=== PATIENT | male | born 1980 | race Caucasian/White ===

== ENCOUNTER 2017-10-14 00:44 | Emergency (ER) | payer SELFPAY ==
[~2017-10-14] VITALS: Ht 185.4 cm; Wt 133.8 kg
[2017-10-14 00:46] VITALS: BP 118/79
--- NOTE | 2017-10-14 00:52 | NUR ---
37/M CAME IN W C/O SYNCOPE AND HEADACHE X 1 DAY. PT REPORTS HE HAD SEVERE HEADACHE AND NECK PAIN YESTERDAY AND WHEN HE GOT OUT OF THE CAR HE HAD SEVERE PAIN AND HAD SYNCOPAL EPISODE. PT REPORTS HE HIT HIS HEAD, NO HEMATOMA/OBVIOUS INJURIES NOTED AT THIS TIME. REPORTS NAUSEA. AOX4, GCS 15. S/O STATES PT HAS BEEN "SPACING OUT SINCE FEBRUARY, I WILL TALK TO HIM AND HE WOULD JUST BE SPACED OUT" PMH: SEVERAL CONCUSSIONS FROM FOOTBALL
--- NOTE | 2017-10-14 00:52 | NUR ---
TO BED # 12 AMBULATORY, REPORT GIVEN TO SHERRY PETERSEN.
[2017-10-14] MEDS ORDERED: NACL 0.9% 1,000 ML IV ONE (01:35)
[2017-10-14] MEDS ORDERED: MORPHINE SULFATE 4 MG/ML SYR IVP ONE (01:35)
[2017-10-14] MEDS ORDERED: diphenhydrAMINE 50 MG/ML VIAL IVP ONE (01:35)
[2017-10-14] MEDS ORDERED: PROCHLORPERAZINE 10 MG/2 ML VIAL IVP ONE (01:35)
[2017-10-14 01:55] LABS: BASOPHILS # (AUTO) 0.1 K/uL (0.00-0.22); BASOPHILS % (AUTO) 0.7 % (0.0-2.0); EOSINOPHILS # (AUTO) 0.2 K/uL (0-0.4); EOSINOPHILS % (AUTO) 2.3 % (0.0-4.0); HEMATOCRIT 46.1 % (36-52); HEMOGLOBIN 15.2 g/dL (12.0-18.0); LYMPHOCYTES # (AUTO) 3.1 K/uL (2.0-11.5); LYMPHOCYTES % (AUTO) 38.2 % (20.5-51.1); MEAN CORPUSCULAR HEMOGLOBIN 28 pg (27-31); MEAN CORPUSCULAR HGB CONC 33 g/dL (33-37); MEAN CORPUSCULAR VOLUME 84.6 fL (80-94); MONOCYTES # (AUTO) 0.6 K/uL (0.8-1.0); NEUTROPHILS # (AUTO) 4.2 K/uL (1.8-7.7); NEUTROPHILS % (AUTO) 51.8 % (42.2-75.2); PLATELET COUNT (AUTO) 128 K/uL (140-450); RED BLOOD CELL COUNT(AUTO) 5.44 MIL/uL (4.20-6.10); RED CELL DISTRIBUTION WIDTH 13.6 % (11.6-13.7); WHITE BLOOD COUNT (AUTO) 8.1 K/uL (4.8-10.8)
--- NOTE | 2017-10-14 02:00 | NUR ---
Patient appears to be resting comfortably in bed. Vital Signs within normal limits. Respirations even and unlabored.
[2017-10-14 04:10] LABS: APPEARANCE,URINE CLEAR (CLEAR); BILIRUBIN,URINE NEGATIVE (NEGATIVE); BLOOD, URINE NEGATIVE (NEGATIVE); COLOR,URINE YELLOW (YELLOW); LEUKOCYTE ESTERASE ,URINE NEGATIVE (NEGATIVE); NITRITE, URINE NEGATIVE (NEGATIVE); UGLUCOSE NEGATIVE (NEGATIVE)
[2017-10-14 04:29] LABS: BARBITURATE, URINE NEG. ng/ml (NEG <=200); BENZODIAZEPINE, URINE NEG. ng/mL (NEG <=200); CANNABINOID, URINE POS. ng/mL (NEG <=50); COCAINE, URINE NEG. ng/mL (NEG <=300); OPIATE, URINE POS. ng/mL (NEG <=2000); PHENCYCLIDINE SCREEN,URINE NEG. ng/mL (NEG <=25)
[2017-10-14 05:22] LABS: ANION GAP 16.7 (8-16); CARBON DIOXIDE 23.2 mmol/L (21-32); CREATININE 1.7 mg/dL (0.7-1.3); POTASSIUM 3.9 mmol/L (3.5-5.1)
[2017-10-14 05:50] VITALS: BP 128/72
--- NOTE | 2017-10-14 05:50 | NUR ---
Patient discharged with v/s stable. Written and verbal after care instructions given and explained. Patient verbalized understanding. Ambulatory with steady gait. All questions addressed prior to discharge. Advised to follow up with PMD. IV removed, catheter intact and site benign. Applied folded 4x4 gauze and tape to stop bleeding.
== END 2017-10-14 05:50 | disposition home or self-care (01) ==
LOC: MED 00:44
DX: R55 Syncope and collapse (principal); F12.10 Cannabis abuse, uncomplicated
CPT/HCPCS: 36415; 70450; 71045; 80048; 80305; 81003; 84484; 85025; 85610; 85730; 93005; 96361; 96374; 96375; 99285; G0482; J0780; J1200; J2270; J7030

== ENCOUNTER 2017-10-15 14:44 | Emergency (ER) | payer MEDICAID ==
[~2017-10-15] VITALS: Ht 185.4 cm; Wt 142.0 kg
[2017-10-15 14:52] VITALS: BP 147/119
--- NOTE | 2017-10-15 14:58 | NUR ---
patient to lobby awaiting available room. assisted by holding on to wheelchair with steady gait.
--- NOTE | 2017-10-15 15:26 | NUR ---
PATIENT PRESENTS TO ED WITH C/O LOWER BACK PAIN WITH SEVERE SPASM PAIN WITH ANY SUDDEN MOVEMENTS. DENIES RECENT INJURY OR TRAUMA---AMBULATES WITH SLOW GUARDED GAIT HOLDING ONTO BACK OF WHEELCHAIR--DENIES STOOL OR URINE INCONTINENCE .DENIES N/V/D; SKIN IS PINK/WARM/DRY; AAOX4 WITH EVEN AND STEADY SLOW GUARDED GAIT; LUNGS CLEAR BL; HR EVEN AND REGULAR; PT DENIES ANY FEVER, CP, SOB, OR COUGH AT THIS TIME; PATIENT STATES PAIN OF 10/10 AT THIS TIME; VSS; PATIENT POSITIONED FOR COMFORT; HOB ELEVATED; BEDRAILS UP X2; BED DOWN. ER MD MADE AWARE OF PT STATUS.
[2017-10-15] MEDS ORDERED: KETOROLAC 60 MG/2 ML VIAL IM ONE (16:10)
[2017-10-15] MEDS ORDERED: ONDANSETRON 4 MG ODT PO ONE (16:10)
[2017-10-15] MEDS ORDERED: MORPHINE SULFATE 10 MG/ML SYR IM ONE ×2 (16:10→17:00)
[2017-10-15] MEDS ORDERED: MORPHINE SULFATE 4 MG/ML SYR ONE ×2 (16:19→17:11)
--- NOTE | 2017-10-15 16:30 | NUR ---
PT RESTING IN BED. NO S/S OF DISTRESS NOTED. RR EVEN/UNLABORED. FAMILY AT BEDSIDE
[2017-10-15] MEDS ORDERED: fentaNYL 0.05 MG/ML VIAL IM ONE (18:05)
--- NOTE | 2017-10-15 18:30 | NUR ---
PT RESTING IN BED. NO S/S OF DISTRESS NOTED. RR EVEN/UNLABORED. FAMILY AT BEDSIDE
[2017-10-15 19:35] VITALS: BP 140/90
--- NOTE | 2017-10-15 19:36 | NUR ---
Patient discharged with v/s stable. Written and verbal after care instructions given and explained. Patient alert, oriented and verbalized understanding of instructions. Ambulatory with steady gait. All questions addressed prior to discharge. ID band removed. Patient advised to follow up with PMD. Rx of NAPROSYN 375MG, GLYCERIN SUPP, TRAMADOL 50MG, MIRALAX 17G given. Patient educated on indication of medication including possible reaction and side effects. Opportunity to ask questions provided and answered.
== END 2017-10-15 19:36 | disposition home or self-care (01) ==
LOC: MED 14:44
DX: G89.29 Other chronic pain (principal); M54.5 Low back pain; K59.00 Constipation, unspecified; M43.26 Fusion of spine, lumbar region
CPT/HCPCS: 81002; 96372; 99284; J1885; J2270; J3010; S0119